=== PATIENT | female | born 1965 | race Caucasian/White ===

== ENCOUNTER 2016-06-07 15:56 | Emergency (ER) | payer OTHER ==
[2016-06-07 17:01] LABS: ABSOLUTE BASOPHIL COUNT 0 /CUMM (0.0-0.2); ABSOLUTE EOSINOPHIL COUNT 0.1 /CUMM (0.0-0.7); ABSOLUTE GRANULOCYTE CT 7.8 /CUMM (1.4-6.5); ABSOLUTE LYMPH COUNT 2.3 /CUMM (1.2-3.4); ABSOLUTE MONOCYTE COUNT 0.5 /CUMM (0.10-0.60); BASOPHIL % 0.3 % (0.0-2.0); EOSINOPHIL % 0.8 % (0-5); GRANULOCYTE % 72.6 % (42.2-75.2); HEMATOCRIT 46.9 % (37-47); MEAN CORPUSCULAR HGB 33.2 PG (27.0-31.0); MEAN CORPUSCULAR HGB CONC 32.8 G/DL (33.0-37.0); MEAN CORPUSCULAR VOLUME 101.3 FL (81.0-99.0); MEAN PLATELET VOLUME 7.8 FL (7.4-10.4); PLATELET COUNT 223 /CUMM (130-400); RBC DISTRIBUTION WIDTH 14.4 % (11.5-14.5); RED BLOOD CELL CT 4.63 /CUMM (4.20-5.40); WHITE BLOOD CELL COUNT 10.8 /CUMM (4.8-10.8)
--- NOTE | 2016-06-07 17:49 | ED GI/GU/ABDOMINAL COMPLAINT ---
History of Present Illness General Chief Complaint: Abdominal Pain/Flank Pain Stated Complaint: FLANK PAIN Source: patient Exam Limitations: no limitations Vital Signs & Intake/Output Vital Signs & Intake/Output Vital Signs Date Time Temp Pulse Resp B/P Pulse O2 O2 Flow FiO2 Ox Delivery Rate 06/08 1931 97.2 84 18 128/74 93 Room Air 06/07 1628 98.2 120 22 141/90 98 Room Air Allergies Coded Allergies: haloperidol (From HALDOL) (TONGUE SWELLED BUT COULD STILL BREATHE 06/07/16) Reconcile Medications Azelastine/Fluticasone (Dymista Nasal [place]) 137 MCG-50 MCG/SPRAY SPRAY.PUMP 1 SPRAY NASB BID CONGESTION (Reported) Bupropion HCl (Bupropion XL) 300 MG TAB.ER.24H 1 TAB PO QAM MENTAL HEALTH ( Reported) Fluticasone/Vilanterol (Breo Ellipta 200-25 Mcg INH) 200 MCG-25 MCG/DOSE BLST.W.DEV 1 PUFF INH Q12H COPD (Reported) Ipratropium/Albuterol Sulfate (Combivent Respimat Inhal [place]) 20 MCG-100 MCG/ ACTUATION MIST.INHAL 2 PUFF INH Q4H COPD (Reported) Lamotrigine 200 MG TABLET 1 TAB PO DAILY MENTAL HEALTH (Reported) Levocetirizine Dihydrochloride 5 MG TABLET 1 TAB PO DAILY ALLERGIES (Reported ) Levothyroxine Sodium 88 MCG TABLET 1 TAB PO DAILY THYROID (Reported) Naproxen 500 MG TABLET 1 TAB PO BID PAIN (Reported) Prazosin HCl 1 MG CAPSULE 2 CAP PO QPM NIGHTMARES (Reported) Quetiapine Fumarate 400 MG TABLET 1 TAB PO QPM SLEEP (Reported) Quetiapine Fumarate 100 MG TABLET 1 TAB PO QPM SLEEP (Reported) Rosuvastatin Calcium (Crestor) 20 MG TABLET 1 TAB PO DAILY CHOLESTEROL ( Reported) Trazodone HCl 100 MG TABLET 2 TAB PO QPM SLEEP (Reported) Triage Note: PER PT ABD PAIN X 1 HR PAIN TO RT SIDE. NO NVD NOTED. Triage Nurses Notes Reviewed? yes ? n Is pt currently ? No HPI: Ms. Nolan is 50 yo female with past history of bipolar PTSD and thyroid problems presenting to the emergency department for right-sided flank pain. Patient states pain has been ongoing for the past 2 weeks with a low ache. However over the past few hours pain has become progressively worse. She now has severe nausea but is unable to vomit. Patient denies hematuria or increased urinary frequency. She denies dysuria. No fevers, chest pain, cough, vomiting or diarrhea. Patient voices subjective chills. No ill contacts or recent travel. No previous kidney stones that she is aware of. Patient has not had any abdominal surgeries at all. Past History Travel History Traveled to [place] past 21 day No Medical History Any Pertinent Medical History? see below for history Neurological: NONE EENT: NONE Cardiovascular: NONE Respiratory: COPD Gastrointestinal: NONE Hepatic: NONE Renal: NONE Musculoskeletal: NONE Psychiatric: PTSD, BIPOLAR Endocrine: THYROID Surgical History Surgical History: none Psychosocial History What is your primary language Omani Tobacco Use: Current Daily Use Daily Tobacco Use Amount/Type: => 5 Cigarettes daily Family History Hx Contributory? No Review of Systems Review of Systems Constitutional: Reports: see HPI. All Other Systems: Reviewed and Negative Comments Review of systems: See HPI, All other systems negative. Constitutional, no chills no fever, no malaise no weight loss HEENT: No visual changes no sore throat no congestion, no ear pain Cardiovascular: No chest pain , no palpitation , no orthopnea no ankle swelling Skin, no jaundice no rashes, no change in skin Respiratory: No dyspnea no cough no sputum no hemoptysis GI: + nausea, +flank pain. no vomiting, no diarrhea, no bloating/constipation : No dysuria No hematuria, no frequency, no discharge Muscle skeletal: No joint pain, no joint swelling, no back pain, no neck pain, Neurologic: No numbness no confusion, no headache Psych: No stress no anxiety no depression,. Heme/endocrine: No bruising no bleeding no polyuria no polydipsia Immunology: No lymphadenopathy, no splenectomy Physical Exam Physical Exam Gastrointestinal: normal bowel sounds Comments: Well-developed well-nourished person in no acute distress HEENT: Normal EENT exam; PERRL, EOMI, no nystagmus. HEAD is atraumatic. moist mucous membranes. Neck: Supple, no lymphadenopathy, normal range of motion without pain or tenderness Back: Nontender, no CVA tenderness. Full range of motion Cardiovascular: Regular rate and rhythms no murmurs rubs or gallops, normal JVP Respiratory: Chest nontender.There were no bony deformities, no asymmetry. No respiratory distress. Patient speaking in full complete sentences. Breath sounds clear to auscultation bilaterally: NO W/R/R Abdomen: + R flank pain w/ voluntary guarding. Soft, nondistended abdomen. No appreciable organomegaly. Normal bowel sounds. No rebound. No ascites. Extremity: No edema, full range of motion of extremities, normal and equal pulses bilaterally, 5 out of 5 strength noted to bilateral upper and lower extremities Neuro: Alert oriented x3, motor sensory normal, cranial nerves II through XII grossly intact. There were no obvious focal neurologic abnormalities. Skin: No appreciable rash on exposed skin, skin is warm and dry. Psych: Mood and affect is normal, memory and judgment is normal. Core Measures ACS in differential dx? No Severe Sepsis Present: No Septic Shock Present: No Progress Differential Diagnosis: appendicitis, bowel obstruction, gastritis, kidney stone , ovarian cyst, PUD/GERD, UTI/pyelo Plan of Care: Orders Procedure Date/time Status URINALYSIS 06/07 1929 Complete MAGNESIUM 06/07 162 Complete LIPASE 06/07 1628 Complete COMPREHENSIVE METABOLIC PANEL 06/07 1628 Complete CBC WITHOUT DIFFERENTIAL 06/07 1628 Complete AMYLASE 06/07 162 Complete Laboratory Tests 06/07/16 1935: Urine Color YEL, Urine Clarity CLEAR, Urine pH 6.0, Ur Specific [place] <= 1.005 , Urine Protein NEG, Urine Ketones NEG, Urine Nitrite NEG, Urine Bilirubin NEG, Urine Urobilinogen 0.2, Ur Leukocyte Esterase NEG, Ur Microscopic EXAM NOT REQUIRED, Urine Hemoglobin NEG, Urine Glucose NEG 06/07/16 1638: Anion Gap 11, Estimated GFR > 60, BUN/Creatinine Ratio 17.5, Glucose 107 H, Calcium 9.9, Magnesium 2.0, Total Bilirubin 0.7, AST 25, ALT 37, Alkaline Phosphatase 73, Total Protein 8.0, Albumin 4.7, Globulin 3.3, Albumin/Globulin Ratio 1.4, Amylase 48, Lipase 110, CBC w Diff NO MAN DIFF REQ, RBC 4.63, MCV 101.3 H, MCH 33.2 H, RDW 14.4, MPV 7.8, Gran % 72.6, Lymphocytes % 21.6, Monocytes % 4.7, Eosinophils % 0.8, Basophils % 0.3, Absolute Granulocytes 7.8 H, Absolute Lymphocytes 2.3, Absolute Monocytes 0.5, Absolute Eosinophils 0.1, Absolute Basophils 0, PUBS MCHC 32.8 L Patient is a well-appearing 50-year-old female presenting with abdominal pain. Patient appears to be in acute distress holding the right side of her abdomen/ flank and crying. Patient denies any previous symptoms like this. Will give Zofran for nausea and morphine for pain as the patient appears uncomfortable. Patient has some mild right-sided flank pain but no CVA tenderness. We will obtain CT to rule out any intra-abdominal pathology such as nephrolithiasis bowel obstruction or appendicitis however is unlikely that the patient has an infectious process going on as she is afebrile here. CT negative labs essentially unremarkable except for minimal electrolyte imbalances. Patient already given 1 L bolus. We will obtain UA sample and if negative will DC home. Remainder of evaluation including CT and urine are both negative is resolved completely. Patient appears challenging with water and some crackers. No vomiting here in ED will DC home follow up with PMD. (VERNON MON,SANJAY) Initial ED EKG: none Departure Departure Time of Disposition: 1999 Disposition: HOME OR SELF CARE Condition: Stable Clinical Impression Primary Impression: Right flank pain Referrals: MAULIK ZAVALETA MD (PCP/Family) Additional Instructions: Please follow up with her primary care doctor as needed. If you are unable to keep down food or drink, have worsening pain or any other concerning symptoms please return to the emergency department for further evaluation. Departure Forms: Customer Survey General Discharge Information
[2016-06-07] MEDS ORDERED: LAMOTRIGINE200 M2 PO (18:04)
[2016-06-07] MEDS ORDERED: CRESTOR20 M2 PO (18:04)
[2016-06-07] MEDS ORDERED: LEVOTHYROXINE88 MCG PO (18:04)
[2016-06-07] MEDS ORDERED: QUETIAPINE FUM400 M1 PO (18:05)
[2016-06-07] MEDS ORDERED: TRAZODONE HCL100 M1 PO (18:05)
[2016-06-07] MEDS ORDERED: QUETIAPINE FUM100 M1 PO (18:05)
[2016-06-07] MEDS ORDERED: PRAZOSIN HCL1 M1 PO (18:06)
[2016-06-07] MEDS ORDERED: BUPROPION XL300 M1 PO (18:06)
[2016-06-07] MEDS ORDERED: COMBIVENT RESPIM4 GM INH (18:07)
[2016-06-07] MEDS ORDERED: DYMISTA NASAL S23 GM NASB (18:07)
[2016-06-07] MEDS ORDERED: BREO ELLIPTA 21 EACH INH (18:07)
[2016-06-07] MEDS ORDERED: LEVOCETIRIZINE D5 M1 PO (18:08)
[2016-06-07] MEDS ORDERED: NAPROXEN500 M2 PO (18:08)
--- NOTE | 2016-06-07 19:14 | CT SCAN REPORT ---
EXAMINATION: CT ABDOMEN AND PELVIS WITH CONTRAST CLINICAL INFORMATION: Flank pain. 50-year-old female patient. COMPARISON: None TECHNIQUE: Multidetector volumetric imaging was performed of the abdomen and pelvis before and after the IV administration of 94 mL of Optiray 320 intravenous contrast. Sagittal and coronal reformatted images were obtained on the technologist's workstation. DLP: 742 mGy-cm FINDINGS: Mastercam Programmer view is unremarkable. LUNG BASES: There is mild dependent atelectasis of both lower lobes. Extremity small pericardial effusion is present. This is within normal limits. A tiny lymph node is present in the right cardiophrenic fat pad. Series 2, image 12. LIVER, GALLBLADDER, AND BILIARY TREE: The liver is normal in size, shape, and attenuation. No focal hepatic lesion or biliary ductal dilatation is present. The gallbladder is unremarkable with no evidence of radiopaque gallstones, gallbladder wall thickening, or obvious pericholecystic inflammatory changes. PANCREAS: Unremarkable. SPLEEN: Unremarkable. ADRENAL GLANDS: Unremarkable. KIDNEYS AND URETERS: The kidneys are normal in size, shape, and attenuation. No hydronephrosis, hydroureter, or calculi seen. No perinephric stranding. The cortical nephrograms are uniform and symmetric. BLADDER: Nearly empty. GASTROINTESTINAL TRACT: The small and large bowel are unremarkable. The appendix is unremarkable. An ingested capsule is seen in the distal small bowel. Series 2, image 60. ABDOMINAL WALL: A small fat-containing umbilical hernia is seen. Series 601, image 77. LYMPH NODES: Normal. VASCULAR: Unremarkable. PELVIC VISCERA: Uterus and ovaries are normal. No free fluid is seen. OSSEOUS STRUCTURES: Degenerative disc disease is seen in the lower thoracic spine and at L5-S1. IMPRESSION: Normal urinary tract. No obstruction or evidence of pyelonephritis.
[2016-06-07 19:32] VITALS: BP 128/74
== END 2016-06-07 20:08 ==
LOC: ERH 15:56
PROVIDERS: Emergency Medicine
DX: R10.31 Right lower quadrant pain (principal)
CPT/HCPCS: 74177; 81003; 96361; 96374; 96375; J2405

== ENCOUNTER → 2017-07-27 | Day surgery (SDC) | payer OTHER ==
--- NOTE | 2017-07-26 18:20 | History & Physical Pre-Op ---
General Information and HPI History of Present Illness: Patient is a 52-year-old 5 para 3 with multiple medical comorbidities who presents with menorrhagia for planned D&C hysteroscopy. Allergies/Medications Allergies: Coded Allergies: haloperidol (From HALDOL) (TONGUE SWELLED BUT COULD STILL BREATHE 06/07/16) Home Med list Azelastine/Fluticasone (Dymista Nasal [place]) 137 MCG-50 MCG/SPRAY SPRAY.PUMP 1 SPRAY NASB BID CONGESTION (Reported) Bupropion HCl (Bupropion XL) 300 MG TAB.ER.24H 1 TAB PO QAM MENTAL HEALTH ( Reported) Fluticasone/Vilanterol (Breo Ellipta 200-25 Mcg INH) 200 MCG-25 MCG/DOSE BLST.W.DEV 1 PUFF INH Q12H COPD (Reported) Ipratropium/Albuterol Sulfate (Combivent Respimat Inhal [place]) 20 MCG-100 MCG/ ACTUATION MIST.INHAL 2 PUFF INH Q4H COPD (Reported) Lamotrigine 200 MG TABLET 1 TAB PO DAILY MENTAL HEALTH (Reported) Levocetirizine Dihydrochloride 5 MG TABLET 1 TAB PO DAILY ALLERGIES (Reported ) Levothyroxine Sodium 88 MCG TABLET 1 TAB PO DAILY THYROID (Reported) Naproxen 500 MG TABLET 1 TAB PO BID PAIN (Reported) Prazosin HCl 1 MG CAPSULE 2 CAP PO QPM NIGHTMARES (Reported) Quetiapine Fumarate 400 MG TABLET 1 TAB PO QPM SLEEP (Reported) Quetiapine Fumarate 100 MG TABLET 1 TAB PO QPM SLEEP (Reported) Rosuvastatin Calcium (Crestor) 20 MG TABLET 1 TAB PO DAILY CHOLESTEROL ( Reported) Trazodone HCl 100 MG TABLET 2 TAB PO QPM SLEEP (Reported) Past History Medical History Neurological: NONE EENT: NONE Cardiovascular: NONE, hypertension, hyperlipidemia Respiratory: COPD, sleep apnea Gastrointestinal: NONE Hepatic: NONE Renal: NONE Musculoskeletal: NONE Psychiatric: PTSD, BIPOLAR Endocrine: THYROID Surgical History Pertinent Surgical History: none Review of Systems Review of Systems Constitutional: Reports: no symptoms. EENTM: Reports: no symptoms. Cardiovascular: Reports: no symptoms. Respiratory: Reports: no symptoms. GI: Reports: no symptoms. Genitourinary: Reports: see HPI. Musculoskeletal: Reports: no symptoms. Skin: Reports: no symptoms. Neurological/Psychological: Reports: no symptoms. Hematologic/Endocrine: Reports: no symptoms. Immunologic/Allergic: Reports: no symptoms. All Other Systems: Reviewed and Negative Exam & Diagnostic Data Last 24 Hrs of Vital Signs/I&O Intake & Output 07/26 1600 07/26 0800 07/26 0000 Intake Total Output Total Balance Patient 220 lb Weight Physical Exam: HEENT: Normocephalic atraumatic Chest: Clear to auscultation bilaterally Cardiovascular: Normal S1-S2 Abdomen: Soft nontender no masses Pelvic: Deferred to the OR Extremities: No clubbing cyanosis or edema Assessment/Plan Assessment/Plan: Menorrhagia Plan: D&C hysteroscopy As Ranked By This Provider Problem List: 1. Menorrhagia
[~2017-07-27] VITALS: Ht 167.6 cm; Wt 99.8 kg
[~2017-07-27] MED LIST: BREO ELLIPTA 21 EACH INH; BUPROPION XL300 M1 PO; COMBIVENT RESPIM4 GM INH; CRESTOR20 M2 PO; DYMISTA NASAL S23 GM NASB; LAMOTRIGINE200 M2 PO; LEVOCETIRIZINE D5 M1 PO; LEVOTHYROXINE88 MCG PO; NAPROXEN500 M2 PO; PRAZOSIN HCL1 M1 PO; QUETIAPINE FUM100 M1 PO; QUETIAPINE FUM400 M1 PO; TRAZODONE HCL100 M1 PO
--- NOTE | 2017-07-27 13:19 | Operative Report ---
Operative/Inv Procedure Report Surgery Date: 07/27/17 Name of Procedure: D&C hysteroscopy Pre-Operative Diagnosis: Menorrhagia Post-Operative Diagnosis: Same Estimated Blood Loss: scant Surgeon/Watch Assembly Instructor: Jeremy Hollingsworth MD Anesthesia: local monitored anesthesi Operative/Procedure Note Note: The patient was brought to the operating room and placed on the OR table in the dorsal supine position. She was given adequate anesthesia and repositioned in a modified dorsal lithotomy. She is prepped and draped in usual sterile fashion. A weighted speculum was inserted into the vagina with help of a Marly retractor a single-toothed tenaculum was attached to the anterior lip of the cervix. Cervix was injected with 1% lidocaine with epinephrine, 2-1/2 mL in each quadrant. Endocervical curettage was performed revealing a small amount of tissue. The uterus was then sounded to 6 cm anteverted. Cervix was serially dilated to accommodate the hysteroscope. The hysteroscope was placed into the uterus and the saline infusion was activated revealing atrophic penny no polyps or fibroids noted. The hysteroscope was removed. The cervix was further dilated. Endometrial curettage was performed revealing a very small amount of tissue. At the end of the procedure the isthmus removed hemostasis was verified. The patient was awakened and sent to recovery in good condition. All needle, sponge, and management counts were correct at the end of the procedure 2.
== END ==
LOC: STS 02:58
DX: N92.0 Excessive and frequent menstruation with regular cycle (principal); I10 Essential (primary) hypertension; J44.9 Chronic obstructive pulmonary disease, unspecified; G47.33 Obstructive sleep apnea (adult) (pediatric)
CPT/HCPCS: J2001; J2250

== ENCOUNTER 2017-08-31 02:13 | Inpatient (IN) | payer OTHER ==
--- NOTE | 2017-08-30 13:03 | History & Physical Pre-Op ---
General Information and HPI History of Present Illness: Patient is a 52-year-old 5 para 3 with multiple morbidities who presents for total abdominal hysterectomy and bilateral salpingo-oophorectomy secondary to menorrhagia. She recently underwent D&C for tissue diagnosis which confirmed normal endometrium. Allergies/Medications Allergies: Coded Allergies: haloperidol (From HALDOL) (TONGUE SWELLED BUT COULD STILL BREATHE 08/26/17) Home Med list Azelastine/Fluticasone (Dymista Nasal [place]) 137 MCG-50 MCG/SPRAY SPRAY.PUMP 1 SPRAY NASB BID CONGESTION (Reported) Azelastine/Fluticasone (Dymista Nasal [place]) 137 MCG-50 MCG/SPRAY SPRAY.PUMP 1 SPRAY NASB BID ALLERGIES (Reported) Cetirizine HCl (Zyrtec) 10 MG TABLET 1 TAB PO DAILY ALLERGY (Reported) Cholecalciferol (Vitamin D3) (Vitamin D) 1,000 UNIT TABLET 1 TAB PO DAILY SUPPLMENT (Reported) Citalopram Hydrobromide (Citalopram HBr) 20 MG TABLET 1 TAB PO DAILY BIPOLAR (Reported) Dexlansoprazole (Dexilant) 60 MG CAP.DR.BP 1 CAP PO DAILY GERD (Reported) Fluticasone Propionate (Flovent Hfa) 44 MCG AER.W.ADAP 2 PUF INH BID COPD ( Reported) Gabapentin (Neurontin) 600 MG TABLET 1 TAB PO TID PAIN (Reported) Hydroxychlorquine (Plaquenil) 200 MG TABLET 1 TAB PO BID RHEUMATOID ARTH ( Reported) Ipratropium/Albuterol Sulfate (Combivent Respimat Inhal [place]) 20 MCG-100 MCG/ ACTUATION MIST.INHAL 2 PUFF INH Q4H COPD (Reported) Lamotrigine (Lamictal XR) 200 MG TAB.ER.24 1 TAB PO DAILY BIPOLAR (Reported) Levocetirizine Dihydrochloride 5 MG TABLET 1 TAB PO DAILY ALLERGIES (Reported ) Levothyroxine Sodium 112 MCG TABLET 1 TAB PO DAILY REPLACEMENT (Reported) Metoclopramide HCl (Reglan) 10 MG TABLET 1 TAB PO TID NAUSEA (Reported) 30 minutes before meals and bedtime Montelukast Sodium (Singulair) 10 MG TABLET 1 TAB PO DAILY ALLERGIES ( Reported) Multiple Vitamin (Multivitamins) 1 EACH TABLET 1 TAB PO DAILY SUPPLEMENT ( Reported) Prazosin HCl 1 MG CAPSULE 2 CAP PO QPM NIGHTMARES (Reported) Prednisone 5 MG TABLET 1 TAB PO DAILY RHEUMATOID (Reported) Quetiapine Fumarate 100 MG TABLET 1 TAB PO QPM SLEEP (Reported) Quetiapine Fumarate (Seroquel) 400 MG TABLET 1 TAB PO QPM BIPOLAR (Reported) Quetiapine Fumarate (Seroquel XR) 150 MG TAB.ER.24H 1 TAB PO DAILY BIPOLAR ( Reported) Rosuvastatin Calcium (Crestor) 20 MG TABLET 1 TAB PO DAILY CHOLESTEROL ( Reported) Tramadol HCl 50 MG TABLET 2 TAB PO BIDP PRN PAIN (Reported) Trazodone HCl 100 MG TABLET 2 TAB PO QPM SLEEP (Reported) Umeclidinium Brm/Vilanterol Tr (Anoro Ellipta 62.5-25 Mcg INH) 62.5 MCG-25 MCG/ ACTUATION BLST.W.DEV COPD (Reported) Past History Medical History Neurological: NONE EENT: NONE Cardiovascular: NONE, hypertension, hyperlipidemia Respiratory: COPD, sleep apnea Gastrointestinal: NONE Hepatic: NONE Renal: NONE Musculoskeletal: NONE Psychiatric: PTSD, BIPOLAR Endocrine: THYROID Surgical History Pertinent Surgical History: D&C Review of Systems Review of Systems Constitutional: Reports: no symptoms. EENTM: Reports: no symptoms. Cardiovascular: Reports: no symptoms. Respiratory: Reports: no symptoms. GI: Reports: no symptoms. Genitourinary: Reports: see HPI. Musculoskeletal: Reports: no symptoms. Skin: Reports: no symptoms. Neurological/Psychological: Reports: no symptoms. Hematologic/Endocrine: Reports: no symptoms. Immunologic/Allergic: Reports: no symptoms. All Other Systems: Reviewed and Negative Exam & Diagnostic Data Physical Exam: HEENT: Normocephalic atraumatic Chest: Clear to auscultation bilaterally Cardiovascular: Normal S1-S2 Abdomen: Soft nontender nondistended Pelvic: Deferred OR Extremities: Bilateral mild edema Neurologic: Assessment/Plan Assessment/Plan: Menorrhagia Plan: JANA/BSO As Ranked By This Provider Problem List: 1. Menorrhagia
[~2017-08-31] VITALS: Ht 170.2 cm; Wt 107.1 kg
[~2017-08-31 02:13] MED LIST changes: +ANORO ELLIPTA1 EACH; +CITALOPRAM HBR20 MG PO; +DEXILANT60 M1 PO; +FLOVENT HFA10.6 GM INH; +LAMICTAL XR200 M1 PO; +LEVOTHYROXINE112 MCG PO; +MULTIVITAMINS1 EAC9 PO; +NEURONTIN600 M1 PO; +PLAQUENIL200 M1 PO; +PREDNISONE5 M1 PO; +REGLAN10 M1 PO; +SEROQUEL XR150 M1 PO; +SEROQUEL400 M1 PO; +SINGULAIR10 M1 PO; +TRAMADOL HCL50 M1 PO; +VITAMIN D1000 UNIT PO; +ZYRTEC10 M3 PO
[2017-08-31 06:30] LABS: ABSOLUTE BASOPHIL COUNT 0 /CUMM (0.0-0.2); ABSOLUTE EOSINOPHIL COUNT 0.1 /CUMM (0.0-0.7); ABSOLUTE GRANULOCYTE CT 5.2 /CUMM (1.4-6.5); ABSOLUTE LYMPH COUNT 1.5 /CUMM (1.2-3.4); ABSOLUTE MONOCYTE COUNT 0.4 /CUMM (0.10-0.60); BASOPHIL % 0.3 % (0.0-2.0); EOSINOPHIL % 1.2 % (0-5); GRANULOCYTE % 72.4 % (42.2-75.2); HEMATOCRIT 34.7 % (37-47); MEAN CORPUSCULAR HGB 31.7 PG (27.0-31.0); MEAN CORPUSCULAR HGB CONC 32.9 G/DL (33.0-37.0); MEAN CORPUSCULAR VOLUME 96.3 FL (81.0-99.0); MEAN PLATELET VOLUME 6.4 FL (7.4-10.4); PLATELET COUNT 252 /CUMM (130-400); RBC DISTRIBUTION WIDTH 15.7 % (11.5-14.5); WHITE BLOOD CELL COUNT 7.2 /CUMM (4.8-10.8)
--- NOTE | 2017-08-31 08:19 | Operative Report ---
Operative/Inv Procedure Report Surgery Date: 08/31/17 Name of Procedure: cyto: bilateral stent insertion Pre-Operative Diagnosis: ovarian cyst/fibroid Post-Operative Diagnosis: same Estimated Blood Loss: scant Surgeon/Appraisal Specialist: MD Parish, Js-urology Anesthesia: general endotracheal tube Drains: 18 fr ko Specimens: ucx Complications: none Operative/Procedure Note Note: The patient was taken to the operating room and placed on the OR table in supine position. Timeout was performed, with the patient awake, to confirm identify, planned procedures, anesthesia, antibiotics and other pertinent peggy-operative information. After adequate anesthesia, and IV antibiotics, the patient was placed in lithotomy Yellow-fin stirrups. She was then draped and prepped in the usual surgical fashion, including a vaginal prep. A 22 Micronesian cystoscope sheath with a 30 angle lens was inserted into the bladder without significant difficulty. The bladder was thoroughly and systematically examined, and was noted to be free of tumor, free of stone, free of endometriosis. Both ureteral orifices were in their orthotopic positions with clear reflux bilaterally. Under direct visualization the left orifice was intubated with a 5 Micronesian whistle-tip catheter, which was advanced easily into the left kidney pelvis. The right ureteral orifice was intubated with a second 5 Micronesian ureteral whistle tip catheter, and advanced into the right renal pelvis without difficulty. For identification purposes the blue marked stent went into the left kidney and the right ureteral stent was marked red. Urine culture was obtained and sent to pathology. The cystoscope was then removed leaving both stents in proper place. An 18 Micronesian Ko catheter was inserted draining clear fluid and 10 mL of sterile water was then placed in the balloon. The ends ureteral stents, which protruded externally, were taped to the Ko catheter in order to secure their position. The individual ureteral stents were then connected to their individual drainage devices. All sponge needle and instrument count were correct at the end of this case. The patient tolerated the procedure well. The patient was then placed in supine position with Venodyne's in place. At this point, Dr.Vander Patricio was able to proceed with the patient's surgery. Findings: normal bladder Discharge Disposition: proceed with dr. ALICEA CC: Js Lugo MD
[2017-08-31 13:30] VITALS: BP 144/80
[2017-08-31] MEDS ORDERED: PRAZOSIN HCL2 M1 PO (14:10)
[2017-08-31] MEDS ORDERED: COLACE100 M1 PO (14:13)
[2017-08-31] MEDS ORDERED: OXYCODONE-ACET1 EACH PO (14:15)
[2017-08-31] MEDS ORDERED: PROAIR HFA8.5 GM INH (14:17)
[2017-08-31 16:00] VITALS: BP 130/70
[2017-08-31 18:00] VITALS: BP 156/90
[2017-08-31 18:43] LABS: ABSOLUTE BASOPHIL COUNT 0 /CUMM (0.0-0.2); ABSOLUTE EOSINOPHIL COUNT 0 /CUMM (0.0-0.7); ABSOLUTE LYMPH COUNT 0.4 /CUMM (1.2-3.4); ABSOLUTE MONOCYTE COUNT 0.1 /CUMM (0.10-0.60); EOSINOPHIL % 0 % (0-5); HEMATOCRIT 36.4 % (37-47)
[2017-08-31 18:51] LABS: ABSOLUTE GRANULOCYTE CT 13.6 /CUMM (1.4-6.5); BASOPHIL % 0.1 % (0.0-2.0); MEAN CORPUSCULAR HGB 32.1 PG (27.0-31.0); MEAN CORPUSCULAR HGB CONC 33.2 G/DL (33.0-37.0); MEAN CORPUSCULAR VOLUME 96.6 FL (81.0-99.0); MEAN PLATELET VOLUME 7.4 FL (7.4-10.4); PLATELET COUNT 247 /CUMM (130-400); RBC DISTRIBUTION WIDTH 15.4 % (11.5-14.5); RED BLOOD CELL CT 3.77 /CUMM (4.20-5.40)
[2017-08-31 18:52] LABS: WHITE BLOOD CELL COUNT 14.1 /CUMM (4.8-10.8)
[2017-08-31 19:52] LABS: GRANULOCYTE % 96.5 % (42.2-75.2)
[2017-08-31 20:00] VITALS: BP 128/60
[2017-08-31 22:00] VITALS: BP 156/80
[2017-09-01] VITALS (12 sets, daily range): BP systolic 120–150; BP diastolic 66–86
--- NOTE | 2017-09-01 10:46 | Operative Report ---
Operative/Inv Procedure Report Surgery Date: 08/31/17 Name of Procedure: Subtotal abdominal hysterectomy bilateral salpingo-oophorectomy Pre-Operative Diagnosis: Menorrhagia Post-Operative Diagnosis: Same Estimated Blood Loss: 50ml to 100ml Surgeon/High School Foreign Language Teacher: Janett Chopra MD,Jreemy Cottrell M.D. Anesthesia: general endotracheal tube Operative/Procedure Note Note: The patient was brought to the operating room and placed on the OR table in the dorsal supine position. She was given adequate general anesthesia and successfully intubated. A Gonzalez catheter was placed into the bladder and drained clear yellow urine. Venodyne boots were placed previously to induction of anesthesia and activated. The patient underwent a tabs block by anesthesia and then had bilaterally to bilateral ureteral stents placed by Dr. Lugo dictated by him. The abdomen was prepped and draped in usual sterile fashion. A Pfannenstiel skin incision was made with the scalpel and taken down to the layer of the fascia. The fascia was nicked in the midline and extended bilaterally. The underlying rectus muscles were dissected away from the overlying fascia and in the midline. The peritoneum was entered sharply and extended bilaterally. Examination revealed a normal-size uterus and fallopian tubes however her pelvis was very very deep. An O'Martínez-O'Dupont retractor was placed into the abdomen and the intestines were packed away using moistened laparotomy pads. A single-tooth tenaculum was attached to the fundus of the uterus and this was elevated throughout the case. The right round ligament was isolated with 0 Polysorb in a owvous-sg-[id number] fashion and tagged. Same procedures. On the left. The right utero-ovarian ligament complex was clamped with a Chelsea clamp transected and suture ligated with 0 Polysorb with good hemostasis. The same procedure is repeated on the left with good hemostasis. The right uterine artery was clamped with a Nighat clamp transected and suture ligated with 0 Polysorb with good hemostasis. Same procedure is repeated on the left. The right and left cardinal ligaments were sequentially taken using Nighat clamps transection and ligation was 0 Polysorb with good hemostasis. The pelvis was deep and her cervix was long with limited exposure so the decision was made to amputate the specimen at the mid level of the cervix. This was done with electrocautery and sharp dissection. The Endo cervical canal was removed using the electrocautery. Cervical stump was oversewn using 0 Polysorb in a running locking fashion. Hemostasis was good. Attention was then paid to the right ovary and fallopian tube which appeared normal and was elevated with a [place] clamp and clamped twice with a duct clamps excised and free tied and suture ligated with 0 Polysorb. Hemostasis was good. The same procedure was completed on the left with good hemostasis. The abdomen and pelvis were copiously irrigated and all surgical sites appeared to be hemostatic. The hemostatic powder was placed in the vaginal cuff. The retractor and laparotomy pads were then removed. The rectus muscles were reapproximated with 0 Polysorb. Fascia was closed using 0 Maxon suture material in a running nonlocking fashion. Subcutaneous tissues were irrigated. The skin was closed using cuca and a dry sterile dressing was applied to the wound. The stents were removed intact the patient was then sent to recovery in good condition. All needle, sponge, and instrument counts were correct at the end of the procedure 2.
--- NOTE | 2017-09-01 10:49 | PN- General Surgery ---
Subjective Subjective: Feels well no flatus passed Review of Systems: Flatus Objective Vital Signs and I&Os Vital Signs Date Time Temp Pulse Resp B/P B/P Pulse O2 O2 Flow FiO2 Mean Ox Delivery Rate 09/01 0808 98.0 72 18 140/70 95 09/01 0800 Room Air 09/01 0800 98.0 72 18 140/70 09/01 0600 98.7 73 18 148/76 09/01 0600 98.7 73 18 148/76 95 Nasal Cannula 09/01 0400 98.5 74 18 136/70 09/01 0356 98.5 74 18 136/70 96 09/01 0205 98.8 70 18 128/66 97 Nasal Cannula 09/01 0200 98.8 70 20 128/66 09/01 0016 99.8 80 18 150/76 94 09/01 0000 99.8 80 18 150/76 09/01 0000 93 Nasal 2.0L Cannula 08/31 2200 97.8 63 20 156/80 08/31 2200 97.8 63 20 156/80 96 Nasal 2.0L Cannula 08/31 2000 98.2 91 20 128/60 08/31 1801 95 Nasal 2.0L Cannula 08/31 1800 97.5 91 20 156/90 08/31 1800 97.5 91 20 156/90 95 Room Air 08/31 1631 Nasal 3.0L Cannula 08/31 1600 97.9 90 16 130/70 08/31 1600 93 Nasal 2.0L Cannula 08/31 1330 93 Nasal 2.0L Cannula 08/31 1330 98.4 88 18 144/80 93 Nasal 2.0L Cannula Intake & Output 09/01 1600 09/01 0800 09/01 0000 08/31 1600 08/31 0800 08/31 0000 Intake Total 995 495 Output Total 1300 1000 150 Balance -305 -505 -150 Intake, IV 875 375 Intake, Oral 120 120 Output, Urine 1300 1000 150 Patient 236 lb Weight Weight Bed scale Measurement Method Physical Exam: Abdomen soft slightly distended incision clean dry and intact Extremities nontender Assessment/Plan Assessment/Plan Status post subtotal abdominal hysterectomy with bilateral salpingo-oophorectomy postop day #1 stable Plan: DC [employer] and Gonzalez, advance diet, increase activity, by mouth pain meds Core Measures Venous Thromboembolism VTE Risk Factors Surgery No Mechanical VTE Prophylaxis d/t N/A MechProphylax Ordered No VTE Pharm Prophylaxis d/t NA PharmProphylax ordered
[2017-09-01 12:54] LABS: ABSOLUTE BASOPHIL COUNT 0 /CUMM (0.0-0.2); ABSOLUTE EOSINOPHIL COUNT 0 /CUMM (0.0-0.7); ABSOLUTE GRANULOCYTE CT 7.9 /CUMM (1.4-6.5); ABSOLUTE LYMPH COUNT 2.2 /CUMM (1.2-3.4); ABSOLUTE MONOCYTE COUNT 0.5 /CUMM (0.10-0.60); BASOPHIL % 0.2 % (0.0-2.0); EOSINOPHIL % 0.3 % (0-5); GRANULOCYTE % 74.4 % (42.2-75.2); HEMATOCRIT 34.2 % (37-47); MEAN CORPUSCULAR HGB 31.6 PG (27.0-31.0); MEAN CORPUSCULAR HGB CONC 32.6 G/DL (33.0-37.0); MEAN CORPUSCULAR VOLUME 96.8 FL (81.0-99.0); MEAN PLATELET VOLUME 7.4 FL (7.4-10.4); PLATELET COUNT 235 /CUMM (130-400); RBC DISTRIBUTION WIDTH 15.4 % (11.5-14.5); RED BLOOD CELL CT 3.54 /CUMM (4.20-5.40); WHITE BLOOD CELL COUNT 10.6 /CUMM (4.8-10.8)
[2017-09-02 07:00] VITALS: BP 118/74
[2017-09-02] MEDS ORDERED: HYDROCODON-ACE1 EAC2 PO (08:53)
== END 2017-09-02 14:03 | DRG 519 ==
LOC: SDA 02:13 → 2NA 02:13 → ENRESERV 12:08 → ENTRNSPT 13:11 → EDTRNSPT 13:12 → EDTRNSPTSTS 13:12 → 2NA 13:23 → CMPTRNSPT 13:53 → 2NA 09-02 14:03
PROVIDERS: Obstetrics & Gynecology
PROC: 0UT90ZZ Resection of Uterus, Open Approach (ICD-10-PCS; principal; 2017-08-31)
PROC: 0UT70ZZ Resection of Bilateral Fallopian Tubes, Open Approach (ICD-10-PCS; 2017-08-31)
PROC: 0UT20ZZ Resection of Bilateral Ovaries, Open Approach (ICD-10-PCS; 2017-08-31)
PROC: 0T788DZ Dilation of Bilateral Ureters with Intraluminal Device, Via Natural or Artificial Opening Endoscopic (ICD-10-PCS; 2017-08-31)
DX: D25.0 Submucous leiomyoma of uterus (principal); N92.0 Excessive and frequent menstruation with regular cycle; M06.9 Rheumatoid arthritis, unspecified; N80.0 Endometriosis of uterus
CPT/HCPCS: 2NAP; 36415; 36592; 87086; 93005; 93010; J0694; J1170; J1200; J1650; J1720; J2405; J2765; J3490